=== PATIENT | female | born 1935 | race Caucasian/White ===

== ENCOUNTER 2017-06-03 11:05 | Inpatient (IN) | payer OTHER ==
--- NOTE | 2017-06-03 11:16 | PDOC ---
History of Present Illness <Fer Barber - Last Filed: 06/03/17 16:18> - General History Source: Patient, Spouse Exam Limitations: No Limitations - History of Present Illness Initial Comments: 06/03/17 11:42 The patient is an 84 year old female with a significant PMH of diverticulitis, HTN, hyperlipidemia, kidney stones, Celiac Disease, and gout who presents to the emergency department with abdominal pain beginning approximately four days ago. The abdominal pain is localized to the LLQ with no radiation. The patient notes that the pain is similar to an episode of kidney stones that she had previously. The patient denies chest pain, shortness of breath, headache and dizziness. Denies fever, chills, nausea, vomit, diarrhea and constipation. Denies dysuria, frequency, urgency and hematuria. Allergies: NKDA Past surgical history: Social history: No reported cigarette, alcohol, or drug use. PCP: Dr. Edwards GI: Dr. Bell <David Vieira - Last Filed: 06/03/17 18:06> - General Chief Complaint: Pain Stated Complaint: ABD PAIN/DIBERTICULITIS Time Seen by Provider: 06/03/17 11:15 Past History - Past Medical History Anemia: No Asthma: No Cancer: No Cardiac Disorders: No CVA: No COPD: No CHF: No Dementia: No Diabetes: No GI Disorders: Yes (CELIAC, DIVERTICULITIS) Disorders: No HTN: Yes Hypercholesterolemia: Yes Kidney Stones: Yes Liver Disease: No Seizures: No Thyroid Disease: No - Surgical History Abdominal Surgery: No Appendectomy: No Cardiac Surgery: No Cholecystectomy: No Lung Surgery: No Neurologic Surgery: No Orthopedic Surgery: No - Psycho/Social/Smoking Cessation Hx Suicidal Ideation: No Smoking History: Never smoked Information on smoking cessation initiated: No Hx Alcohol Use: No Drug/Substance Use Hx: No Substance Use Type: None Hx Substance Use Treatment: No <Fer Barber - Last Filed: 06/03/17 16:18> <David Vieira - Last Filed: 06/03/17 18:06> - Past Medical History Allergies/Adverse Reactions: Allergies Allergy/AdvReac Type Severity Reaction Status Date / Time gluten Allergy Verified 06/03/17 11:10 No Known Drug Allergies Allergy Verified 06/03/17 11:10 wheat Allergy Verified 06/03/17 11:10 Home Medications: Ambulatory Orders Allopurinol 300 mg PO DAILY 01/25/16 Hydrochlorothiazide [Hctz -] 12.5 mg PO DAILY 01/25/16 Rosuvastatin Calcium [Crestor] 5 mg PO ASDIR 01/25/16 Cholecalciferol (Vitamin D3) [Vitamin D3] 2,000 unit PO DAILY 06/03/17 Metoprolol Succinate [Toprol Xl -] 50 mg PO DAILY 06/03/17 Review of Systems - Review of Systems Comments:: 06/03/17 11:43 GENERAL/CONSTITUTIONAL: No fever or chills. No weakness. HEAD, EYES, EARS, NOSE AND THROAT: No change in vision. No ear pain or discharge. No sore throat. CARDIOVASCULAR: No chest pain or shortness of breath. RESPIRATORY: No cough, wheezing, or hemoptysis. GASTROINTESTINAL: (+) LLQ abdominal pain. No nausea, vomiting, diarrhea or constipation. GENITOURINARY: No dysuria, frequency, or change in urination. MUSCULOSKELETAL: No joint or muscle swelling or pain. No neck or back pain. SKIN: No rash NEUROLOGIC: No headache, vertigo, loss of consciousness, or change in strength/ sensation. ENDOCRINE: No increased thirst. No abnormal weight change. HEMATOLOGIC/LYMPHATIC: No anemia, easy bleeding, or history of blood clots. ALLERGIC/IMMUNOLOGIC: No hives or skin allergy. <David Vieira - Last Filed: 06/03/17 18:06> *Physical Exam - Vital Signs Last Vital Signs Temp Pulse Resp BP Pulse Ox 97.7 F 81 17 145/77 97 06/03/17 11:08 06/03/17 11:08 06/03/17 11:08 06/03/17 11:08 06/03/17 11:08 <Fer Barber - Last Filed: 06/03/17 16:18> - Vital Signs Last Vital Signs Temp Pulse Resp BP Pulse Ox 97.7 F 81 17 145/77 97 06/03/17 11:08 06/03/17 11:08 06/03/17 11:08 06/03/17 11:08 06/03/17 11:08 - Physical Exam Comments: 06/03/17 11:43 GENERAL: Awake, alert, and fully oriented, in no acute distress HEAD: No signs of trauma EYES: PERRLA, EOMI, sclera anicteric, conjunctiva clear ENT: Auricles normal inspection, hearing grossly normal, nares patent, oropharynx clear without exudates. Moist mucosa NECK: Normal ROM, supple, no lymphadenopathy, JVD, or masses LUNGS: Breath sounds equal, clear to auscultation bilaterally. No wheezes, and no crackles HEART: Regular rate and rhythm, normal S1 and S2, no murmurs, rubs or gallops ABDOMEN: (+) LLQ tender to palpation. Soft, normoactive bowel sounds. No guarding, no rebound. No masses EXTREMITIES: Normal range of motion, no edema. No clubbing or cyanosis. No cords, erythema, or tenderness NEUROLOGICAL: Cranial nerves II through XII grossly intact. Normal speech. SKIN: Warm, Dry, normal turgor, no rashes or lesions noted. <David Vieira - Last Filed: 06/03/17 18:06> ED Treatment Course - LABORATORY CBC & Chemistry Diagram: 06/03/17 12:00 06/03/17 11:54 <Fer Barber - Last Filed: 06/03/17 16:18> - LABORATORY CBC & Chemistry Diagram: 06/03/17 12:00 06/03/17 11:54 <David Vieira - Last Filed: 06/03/17 18:06> *DC/Admit/Observation/Transfer - Discharge Dispostion Admit: Yes - Attestations Physician Attestion: 06/03/17 11:16 I, Dr. Fer Barber, attest that this document has been prepared under my direction and personally reviewed by me in its entirety. I further attest, that it accurately reflects all work, treatment, procedures and medical decision -making performed by me. <Fer Barber - Last Filed: 06/03/17 16:18> - Attestations Scribe Attestion: 06/03/17 11:43 Documentation prepared by David Vieira, acting as chief medical director for Fer Barber DO. <David Vieira - Last Filed: 06/03/17 18:06> Diagnosis at time of Disposition: Acute diverticulitis, Failure of outpatient treatment - Discharge Dispostion Condition at time of disposition: Improved - Referrals
[2017-06-03] MEDS ORDERED: ONDANSETRON 4 MG/2 ML VIAL IVPUSH ONE (11:37)
[2017-06-03] MEDS ORDERED: morphine CARPU-JECT 2 MG/1 ML DISP.SYRIN IVPUSH ONE ×2 (11:37→11:38)
[2017-06-03] MEDS ORDERED: morphine CARPU-JECT 2 MG/1 ML DISP.SYRIN ONE (11:58)
[2017-06-03] MEDS ORDERED: ONDANSETRON 4 MG/2 ML VIAL ONE (11:59)
[2017-06-03 12:06] LABS: BASOPHIL 0.2 % (0-2.0); EOSINOPHIL 0.4 % (0-4.5); MCH 30.2 pg (25.7-33.7); MCHC 33.9 g/dl (32.0-36.0); MEAN CELL VOLUME 89.1 fl (80-96); MEAN PLT VOLUME 9.1 fl (7.5-11.1); NEUTROPHILS 68.3 % (42.8-82.8); PLATELET COUNT 191 K/MM3 (134-434); RDW 13.2 % (11.6-15.6); WHITE BLOOD COUNT 7.9 K/mm3 (4.0-10.0)
[2017-06-03 12:10] LABS: URINE APPEARANCE CLEAR; URINE BILIRUBIN 1+ (NEGATIVE); URINE BLOOD TRACE-LYSE (NEGATIVE); URINE COLOR YELLOW; URINE GLUCOSE (UA) NEGATIVE (NEGATIVE); URINE KETONE NEGATIVE (NEGATIVE); URINE LEUK ESTERASE NEGATIVE (NEGATIVE); URINE NITRITE NEGATIVE (NEGATIVE); URINE UROBILINOGEN 0.2 mg/dL (0.2-1.0)
[2017-06-03 12:22] LABS: URINE PROTEIN TRACE (NEGATIVE)
[2017-06-03 12:28] LABS: INR 1.32 (0.82-1.09); PROTHROMBIN TIME (PATIENT) 14.6 SEC (9.98-11.88)
[2017-06-03 12:40] LABS: ALBUMIN 3.6 g/dl (3.4-5.0); ANION GAP 11 (8-16); BILIRUBIN,TOTAL 1.2 mg/dL (0.2-1.0); CO2 29 mmol/L (21-32); CREATININE 1.6 mg/dL (0.55-1.02); GLUCOSE,RANDOM 210 mg/dL (74-106); SGOT/AST 18 U/L (15-37); SGPT/ALT 23 U/L (12-78); TOT PROT 6.4 g/dl (6.4-8.2)
[2017-06-03 12:41] LABS: ALK PHOS 88 U/L (45-117)
[2017-06-03] MEDS ORDERED: POTASSIUM CHLORIDE TABS 20 MEQ TABLET.ER (FP) PO ONE (13:29)
[2017-06-03] MEDS ORDERED: POTASSIUM CHLORIDE TABS 10 MEQ TABLET.ER (FP) ONE (13:42)
[2017-06-03] MEDS ORDERED: SODIUM CHLORIDE 1,000 ML IV STA (14:30)
[2017-06-03] MEDS ORDERED: PIPERACILLIN/TAZOB 3.375 GM/50 ML PRE-DOCKED IV ONE (15:16)
[2017-06-03] MEDS ORDERED: METRONIDAZOLE 500 MG PREMIXED 100 ML IVPB ONE ×2 (15:16→15:31)
[2017-06-03] MEDS ORDERED: PIPERACILLIN/TAZOB 3.375 GM 50 ML IVPB ONE (15:31)
[2017-06-03] MEDS ORDERED: ONDANSETRON 4 MG/2 ML VIAL IVPB PRN (17:02)
--- NOTE | 2017-06-03 18:17 | HP ---
CHIEF COMPLAINT: abdominal pain PCP:Dr. Edwards HISTORY OF PRESENT ILLNESS: 81 yo F with significant PMHx of Diverticulitis, HTN, HLD, kidney stones, Celiac Disease and Gout presents with one week history of abdominal. She describes intermittent 6/10 LLQ sharp pain. No alleviating or aggravating factors. She initially went to urgent care last week and had CT of abdomen that showed diverticulitis and was given PO Cipro/Flagyl. She did not tolerate flagyl secondary to GI upset. She presents to ER today because of unresolved symptoms. Denies CP, SHEARER, SOB, palpitation, N/V. Denies Fever or chills. ER course was notable for: (1)CT abdomen: There is acute sigmoid diverticulitis with annular wall thickening, pericolonic fat stranding and thickening of the mesocolon. (2)Given Zosyn and Flagyl x1 (3)CXR showed no acute pathology Recent Travel: denies PAST MEDICAL HISTORY: Diverticulitis, HTN, HLD, kidney stones, Celiac Disease and Gout PAST SURGICAL HISTORY: partial hysterctomy. Social History: Smoking:denies Alcohol:denies Drugs: denies Family History: Mother (breast cancer) Father ( in 80's of old age.) Allergies gluten Allergy (Verified 06/03/17 11:10) No Known Drug Allergies Allergy (Verified 06/03/17 11:10) wheat Allergy (Verified 06/03/17 11:10) HOME MEDICATIONS: Home Medications Medication Instructions Recorded Allopurinol 300 mg PO DAILY 01/25/16 Hydrochlorothiazide [Hctz -] 12.5 mg PO DAILY 01/25/16 Rosuvastatin Calcium [Crestor] 5 mg PO ASDIR 01/25/16 Cholecalciferol (Vitamin D3) 2,000 unit PO DAILY 06/03/17 [Vitamin D3] Metoprolol Succinate [Toprol Xl -] 50 mg PO DAILY 06/03/17 REVIEW OF SYSTEMS CONSTITUTIONAL: Absent: fever, chills, diaphoresis, generalized weakness, malaise, loss of appetite, weight change HEENT: Absent: rhinorrhea, nasal congestion, throat pain, throat swelling, difficulty swallowing, mouth swelling, ear pain, eye pain, visual changes CARDIOVASCULAR: Absent: chest pain, syncope, palpitations, irregular heart rate, lightheadedness , peripheral edema RESPIRATORY: Absent: cough, shortness of breath, dyspnea with exertion, orthopnea, wheezing, stridor, hemoptysis GASTROINTESTINAL:abdominal pain Absent: , abdominal distension, nausea, vomiting, diarrhea, constipation, melena , hematochezia GENITOURINARY: Absent: dysuria, frequency, urgency, hesitancy, hematuria, flank pain, genital pain MUSCULOSKELETAL: Absent: myalgia, arthralgia, joint swelling, back pain, neck pain SKIN: Absent: rash, itching, pallor HEMATOLOGIC/IMMUNOLOGIC: Absent: easy bleeding, easy bruising, lymphadenopathy, frequent infections ENDOCRINE: Absent: unexplained weight gain, unexplained weight loss, heat intolerance, cold intolerance NEUROLOGIC: Absent: headache, focal weakness or paresthesias, dizziness, unsteady gait, seizure, mental status changes, bladder or bowel incontinence PSYCHIATRIC: Absent: anxiety, depression, suicidal or homicidal ideation, hallucinations. PHYSICAL EXAMINATION Vital Signs - 24 hr 06/03/17 17:19 Temperature 98.2 F Pulse Rate [ 74 Left Radial] Respiratory 17 Rate Blood Pressure 111/62 [Right Arm] O2 Sat by Pulse 96 Oximetry (%) GENERAL: Awake, alert, and fully oriented, in no acute distress. HEAD: Normal with no signs of trauma. EYES: PERRLA,EOMI, sclera anicteric, conjunctiva clear. No lid lag. EARS, NOSE, THROAT: DRY mucous membranes. NECK: supple without JVD LUNGS: CTAB. No wheezes, and no crackles. No accessory muscle use. HEART: Regular rate and rhythm, normal S1 and S2 without murmur, rub or gallop. ABDOMEN: Soft, LLQ tenderness, not distended, normoactive bowel sounds,(+) voluntary guarding, no rebound, no masses. No hepatomegaly or splenomegaly. MUSCULOSKELETAL: Normal range of motion at all joints. No bony deformities or tenderness. No CVA tenderness. UPPER EXTREMITIES: 2+ pulses, warm, well-perfused. No cyanosis. No clubbing. No peripheral edema. LOWER EXTREMITIES: 2+ pulses, warm, well-perfused. No calf tenderness. trace bilateral LE edema. NEUROLOGICAL: Cranial nerves II-XII intact. Normal speech. gait not observed. PSYCHIATRIC: Cooperative. Good eye contact. Appropriate mood and affect. SKIN: Warm, dry, normal turgor, no rashes or lesions noted, normal capillary refill. Laboratory Tests 06/03/17 06/03/1706/03/17 11:54 12:00 12:00 WBC 7.9 D RBC 5.28 H Hgb 15.9 H Hct 47.1 H MCV 89.1 MCH 30.2 MCHC 33.9 RDW 13.2 Plt Count 191 D MPV 9.1 Neutrophils % 68.3 D Lymphocytes % 15.5 Monocytes % 15.6 H Eosinophils % 0.4 Basophils % 0.2 INR 1.32 H D Sodium 136 Potassium 3.1 L Chloride 96 L Carbon Dioxide 29 Anion Gap 11 BUN 30 H D Creatinine 1.6 H Creat Clearance w eGFR 30.86 Random Glucose 210 H Calcium 9.0 Total Bilirubin 1.2 H D AST 18 D ALT 23 D Alkaline Phosphatase 88 D Total Protein 6.4 Albumin 3.6 Urine Color Urine Appearance Urine pH Ur Specific [place] Urine Protein Urine Glucose (UA) Urine Ketones Urine Blood Urine Nitrite Urine Bilirubin Urine Urobilinogen Ur Leukocyte Esterase 06/03/17 12:00 WBC RBC Hgb Hct MCV MCH MCHC RDW Plt Count MPV Neutrophils % Lymphocytes % Monocytes % Eosinophils % Basophils % INR Sodium Potassium Chloride Carbon Dioxide Anion Gap BUN Creatinine Creat Clearance w eGFR Random Glucose Calcium Total Bilirubin AST ALT Alkaline Phosphatase Total Protein Albumin Urine Color Yellow Urine Appearance Clear Urine pH 6.0 Ur Specific [place] 1.020 Urine Protein Trace H Urine Glucose (UA) Negative Urine Ketones Negative Urine Blood Trace-lyse Urine Nitrite Negative Urine Bilirubin 1+ H Urine Urobilinogen 0.2 Ur Leukocyte Esterase Negative IMAGING: * [id number] CT/ABDOMEN PELVIS CT W/O CONTR EXAM: CT ABDOMEN AND PELVIS WITHOUT IV CONTRAST. INDICATION: Abdominal pain. Acute diverticulitis. TECHNIQUE: Contiguous axial CT images of the abdomen and pelvis were obtained with oral contrast. No intravenous contrast administered. Coronal and sagittal reconstructions obtained COMPARISON: 01/25/2016 CT abdomen/pelvis. FINDINGS: Evaluation of the solid viscera and vessels is limited without IV contrast. There is subsegmental dependent atelectasis inferior lingula and bilateral lower lobes. There is mild multichamber cardiomegaly. There is calcific atherosclerosis along the left main coronary artery. There is acute sigmoid diverticulitis with annular wall thickening, pericolonic fat stranding and thickening of the mesocolon. There is no gross free intraperitoneal air. There is no gross drainable fluid collection at this time. There is no evidence of bowel obstruction. There is a small hiatal hernia. The liver and spleen are normal in size. The gallbladder is not pathologically distended. The common bile duct is not dilated. The unopacified pancreas is unremarkable. There is no mass in the adrenal glands. There is no hydronephrosis. There are calculi in the upper pole calyces of the left kidney with staghorn configuration, measuring up to 1.2 cm in length and 0.6 cm in thickness, associated with caliectasis. Additional punctate nonobstructing calculi in lower pole calyces of left kidney measuring approximately 2 mm are noted. There is a large left renal sinus cyst, unchanged. There are exophytic hypodense lesions in both kidneys, too small to characterize, but unchanged in size and most likely represent cysts. There is also an exophytic hyperdense lesion in the lower pole left kidney which is unchanged in size, probably a cyst with proteinaceous contents. The abdominal aorta is of normal caliber. There is moderate calcific atherosclerosis, predominantly along the infrarenal abdominal aorta. There is also extensive calcific atherosclerosis along the right internal iliac artery. There is a prominent, rounded lymph node adjacent to the proximal left common iliac artery, unchanged in size. Additional nonspecific subcentimeter retroperitoneal lymph nodes are unchanged in size. Urinary bladder is unremarkable. Subcentimeter nodular calcification in the right uterine fundus is unchanged, most compatible with a degenerated fibroid. There are no pathologically enlarged pelvic sidewall lymph nodes by size criteria. There is a small fat-containing left inguinal hernia. No acute fracture in the visualized osseous structures. There are degenerative changes in the spine , sacroiliac joints and hips. IMPRESSION: 1. Acute sigmoid diverticulitis as described above. No gross free intraperitoneal air or drainable fluid collection at this time. Consider sigmoidoscopy after completion of therapy to exclude underlying mass lesion. 2. Left nephrolithiasis as described above with unchanged focal caliectasis in the upper pole. 3. Exophytic hyperdense lesion in the lower pole of left kidney is unchanged in size, most likely a cyst with proteinaceous contents. This can be confirmed with nonemergent, outpatient renal sonogram. Reported By: Wong Gustafson MD 06/03/17 [id number] ASSESSMENT/PLAN: 81 yo F with significant PMHx of Diverticulitis, HTN, HLD, kidney stones, Celiac Disease and Gout admitted for failed outpatient treatment of acute diverticulitis. Problem List - Problem (1) Failure of outpatient treatment (2) Diverticulitis Assessment/Plan: * CT abdomen show acute diverticulitis * Will give Ceftriaxone 2gm IV daily and Metronidazole 500mg IV Q8H * Full liquid diet - gluten free\ * Consulted Dr. Bell her GI * Last Colonoscopy December of 2016 showed 2 polyps and diverticulosis * Repeat CMP in AM (3) HTN (hypertension) Assessment/Plan: * Will continue home meds. * HCTZ and Metoprolol (4) HLD (hyperlipidemia) Assessment/Plan: * Continue Crestor MWF [facility] (5) Gout Assessment/Plan: * Continue Allopurinol (6) Celiac disease Assessment/Plan: * Gluten free diet. (7) DVT prophylaxis Assessment/Plan: * SCD's bilat * Heparin SubQ 5000Units BID. Visit type - Emergency Visit Emergency Visit: Yes ED Registration Date: 06/03/17 Care time: The patient presented to the Emergency Department on the above date and was hospitalized for further evaluation of their emergent condition. - New Patient This patient is new to me today: Yes Date on this admission: 06/03/17 - Critical Care Critical Care patient: No
[2017-06-03 18:40] VITALS: BMI 29.2
[2017-06-03] MEDS: SODIUM CHLORIDE 1,000 ML IV SCH (18:54)
--- NOTE | 2017-06-03 19:34 | PN ---
Teaching Attending Note Name of Resident: Vasquez Naqvi ATTENDING PHYSICIAN STATEMENT I saw and evaluated the patient. I reviewed the resident's note and discussed the case with the resident. I agree with the resident's findings and plan as documented. SUBJECTIVE: Patient is c/o having abdominal pain was diagnosed recently with diverticulitis and was given oral Antibiotic without any improvement since was not able to swallow the meds. due to feeling nauseas and was throwing up. OBJECTIVE: Vital Signs Temperature 97.8 F 06/03/17 18:34 Pulse Rate 76 06/03/17 18:34 Respiratory Rate 20 06/03/17 18:34 Blood Pressure 111/65 06/03/17 18:34 O2 Sat by Pulse Oximetry (%) 94 L 06/03/17 18:43 CBCD WBC 7.9 K/mm3 (4.0-10.0) D 06/03/17 12:00 RBC 5.28 M/mm3 (3.60-5.2) H 06/03/17 12:00 Hgb 15.9 GM/dL (10.7-15.3) H 06/03/17 12:00 Hct 47.1 % (32.4-45.2) H 06/03/17 12:00 MCV 89.1 fl (80-96) 06/03/17 12:00 MCHC 33.9 g/dl (32.0-36.0) 06/03/17 12:00 RDW 13.2 % (11.6-15.6) 06/03/17 12:00 Plt Count 191 K/MM3 (134-434) D 06/03/17 12:00 MPV 9.1 fl (7.5-11.1) 06/03/17 12:00 CMP Sodium 136 mmol/L (136-145) 06/03/17 11:54 Potassium 3.1 mmol/L (3.5-5.1) L 06/03/17 11:54 Chloride 96 mmol/L (98-107) L 06/03/17 11:54 Carbon Dioxide 29 mmol/L (21-32) 06/03/17 11:54 Anion Gap 11 (8-16) 06/03/17 11:54 BUN 30 mg/dL (7-18) H D 06/03/17 11:54 Creatinine 1.6 mg/dL (0.55-1.02) H 06/03/17 11:54 Creat Clearance w eGFR 30.86 (>60) 06/03/17 11:54 Random Glucose 210 mg/dL (74-106) H 06/03/17 11:54 Calcium 9.0 mg/dL (8.5-10.1) 06/03/17 11:54 Total Bilirubin 1.2 mg/dL (0.2-1.0) H D 06/03/17 11:54 AST 18 U/L (15-37) D 06/03/17 11:54 ALT 23 U/L (12-78) D 06/03/17 11:54 Alkaline Phosphatase 88 U/L (45-117) D 06/03/17 11:54 Total Protein 6.4 g/dl (6.4-8.2) 06/03/17 11:54 Albumin 3.6 g/dl (3.4-5.0) 06/03/17 11:54 Current Medications Generic Name Dose Route Start Last Admin Trade Name Freq PRN Reason Stop Dose Admin Allopurinol 300 mg 06/04/17 10:00 Zyloprim - PO DAILY [facility] Cholecalciferol 2,000 unit 06/04/17 10:00 Vitamin D3 - PO DAILY [facility] Heparin Sodium (Porcine) 5,000 unit 06/03/17 22:00 Heparin - SQ BID [facility] Hydrochlorothiazide 12.5 mg 06/04/17 10:00 Hctz - PO DAILY [facility] Sodium Chloride 1,000 mls @ 100 mls/hr 06/03/17 17:15 06/03/17 18:54 Normal Saline - IV 100 mls/hr ASDIR [facility] Administration Metronidazole 100 mls @ 100 mls/hr 06/04/17 02:00 Flagyl 500mg Premixed Ivpb - IVPB Q8H-IV [facility] Ceftriaxone Sodium 2 gm/ 100 mls @ 200 mls/hr 06/04/17 10:00 Dextrose IVPB DAILY [facility] Metoprolol Succinate 50 mg 06/04/17 10:00 Toprol Xl - PO DAILY [facility] Morphine Sulfate 2 mg 06/03/17 17:02 Morphine Injection - IVPUSH Q4H PRN PAIN Ondansetron HCl 4 mg 06/03/17 17:02 Zofran Injection IVPB Q6H PRN NAUSE[facility] Rosuvastatin Calcium 5 mg 06/03/17 19:15 Crestor - PO [facility] Home Medications Medication Instructions Recorded Allopurinol 300 mg PO DAILY 01/25/16 Hydrochlorothiazide [Hctz -] 12.5 mg PO DAILY 01/25/16 Rosuvastatin Calcium [Crestor] 5 mg PO MOWEFR 01/25/16 Cholecalciferol (Vitamin D3) 2,000 unit PO DAILY 06/03/17 [Vitamin D3] Metoprolol Succinate [Toprol Xl -] 50 mg PO DAILY 06/03/17 ASSESSMENT AND PLAN: CT/ABDOMEN PELVIS CT W/O CONTR EXAM: CT ABDOMEN AND PELVIS WITHOUT IV CONTRAST. INDICATION: Abdominal pain. Acute diverticulitis. TECHNIQUE: Contiguous axial CT images of the abdomen and pelvis were obtained with oral contrast. No intravenous contrast administered. Coronal and sagittal reconstructions obtained COMPARISON: 01/25/2016 CT abdomen/pelvis. FINDINGS: Evaluation of the solid viscera and vessels is limited without IV contrast. There is subsegmental dependent atelectasis inferior lingula and bilateral lower lobes. There is mild multichamber cardiomegaly. There is calcific atherosclerosis along the left main coronary artery. There is acute sigmoid diverticulitis with annular wall thickening, pericolonic fat stranding and thickening of the mesocolon. There is no gross free intraperitoneal air. There is no gross drainable fluid collection at this time. There is no evidence of bowel obstruction. There is a small hiatal hernia. The liver and spleen are normal in size. The gallbladder is not pathologically distended. The common bile duct is not dilated. The unopacified pancreas is unremarkable. There is no mass in the adrenal glands. There is no hydronephrosis. There are calculi in the upper pole calyces of the left kidney with staghorn configuration, measuring up to 1.2 cm in length and 0.6 cm in thickness, associated with caliectasis. Additional punctate nonobstructing calculi in lower pole calyces of left kidney measuring approximately 2 mm are noted. There is a large left renal sinus cyst, unchanged. There are exophytic hypodense lesions in both kidneys, too small to characterize, but unchanged in size and most likely represent cysts. There is also an exophytic hyperdense lesion in the lower pole left kidney which is unchanged in size, probably a cyst with proteinaceous contents. The abdominal aorta is of normal caliber. There is moderate calcific atherosclerosis, predominantly along the infrarenal abdominal aorta. There is also extensive calcific atherosclerosis along the right internal iliac artery. There is a prominent, rounded lymph node adjacent to the proximal left common iliac artery, unchanged in size. Additional nonspecific subcentimeter retroperitoneal lymph nodes are unchanged in size. Urinary bladder is unremarkable. Subcentimeter nodular calcification in the right uterine fundus is unchanged, most compatible with a degenerated fibroid. There are no pathologically enlarged pelvic sidewall lymph nodes by size criteria. There is a small fat-containing left inguinal hernia. No acute fracture in the visualized osseous structures. There are degenerative changes in the spine , sacroiliac joints and hips. IMPRESSION: 1. Acute sigmoid diverticulitis as described above. No gross free intraperitoneal air or drainable fluid collection at this time. Consider sigmoidoscopy after completion of therapy to exclude underlying mass lesion. 2. Left nephrolithiasis as described above with unchanged focal caliectasis in the upper pole. 3. Exophytic hyperdense lesion in the lower pole of left kidney is unchanged in size, most likely a cyst with proteinaceous contents. This can be confirmed with nonemergent, outpatient renal sonogram. Reported By: Wong Gustafson MD 06/03/17 [id number] PE: per resident's note Abdomen:Soft, positive for LLQ tenderness. ASSESSMENT/PLAN: 81 yo F with significant PMHx of Diverticulitis, HTN, HLD, kidney stones, Celiac Disease and Gout admitted for failed outpatient treatment of acute diverticulitis. # Acute Diverticulitis failed outpatient treatment on IV antibiotic Flagyl/ Rocephin; GI consult Dr. Bell , iV morphine prn. NPO for now. # HTN (hypertension) continue home meds # HLD (hyperlipidemia) continue home meds # Gout continue Allopurinol # Celiac disease; gluten free, wheat free diet DVT prophylaxis: Heparin, SCDs
[2017-06-03] MEDS: HEPARIN NA (PORCINE) 5,000 UNITS/ML 1ML VIAL SQ SCH (21:05)
[2017-06-03] MEDS: morphine CARPU-JECT 2 MG/1 ML DISP.SYRIN IVPUSH PRN (21:06)
[2017-06-03] MEDS ORDERED: ROSUVASTATIN CA 5 MG TABLET (FP) PO SCH (22:00)
[2017-06-04] MEDS: METRONIDAZOLE 500 MG PREMIXED 100 ML IVPB SCH ×3 (01:02→18:04)
[2017-06-04] MEDS: SODIUM CHLORIDE 1,000 ML IV SCH ×2 (05:44→18:04)
[2017-06-04] MEDS: morphine CARPU-JECT 2 MG/1 ML DISP.SYRIN IVPUSH PRN ×3 (05:45→21:54)
[2017-06-04 08:51] LABS: MCH 30.4 pg (25.7-33.7); MCHC 33.9 g/dl (32.0-36.0); MEAN CELL VOLUME 89.9 fl (80-96); MEAN PLT VOLUME 9.1 fl (7.5-11.1); PLATELET COUNT 137 K/MM3 (134-434); RDW 13.6 % (11.6-15.6)
[2017-06-04 09:16] LABS: ALBUMIN 2.6 g/dl (3.4-5.0); ANION GAP 10 (8-16); BILIRUBIN,TOTAL 0.6 mg/dL (0.2-1.0); CALCIUM 7.5 mg/dL (8.5-10.1); CO2 26 mmol/L (21-32); CREATININE 1.3 mg/dL (0.55-1.02); GLUCOSE,RANDOM 113 mg/dL (74-106); MAGNESIUM 1.8 mg/dL (1.8-2.4); PHOSPHOROUS 2.5 mg/dL (2.5-4.9); SGOT/AST 12 U/L (15-37); SGPT/ALT 16 U/L (12-78); TOT PROT 4.6 g/dl (6.4-8.2)
[2017-06-04 09:17] LABS: ALK PHOS 63 U/L (45-117)
[2017-06-04] MEDS ORDERED: DEXTROSE 5%-WATER 100 ML IVPB ONE (09:55)
[2017-06-04] MEDS ORDERED: cefTRIAXone 2 GM/100 ML BAG (PRE-DOCKED) IVPB SCH (10:00)
[2017-06-04] MEDS ORDERED: CEFTRIAXONE 1 GM in DEXTROSE 5%-WATER - 50 ML IVPB SCH (10:00)
[2017-06-04] MEDS ORDERED: LEVOFLOXACIN 500 MG IVPB 100 ML IVPB SCH (10:00)
[2017-06-04] MEDS: CEFTRIAXONE 2 GM in DEXTROSE 5%-WATER 100 ML IVPB SCH (10:00)
[2017-06-04] MEDS: HYDROCHLOROTHIAZIDE 12.5 MG CAPSULE (FP) PO SCH (10:00)
[2017-06-04] MEDS: CHOLECALCIFEROL (VITAMIN D3) 1,000 UNIT TABLET (FP) PO SCH (10:00)
[2017-06-04] MEDS: HEPARIN NA (PORCINE) 5,000 UNITS/ML 1ML VIAL SQ SCH ×2 (10:01→21:54)
[2017-06-04] MEDS: METOPROLOL SUCCINATE 50 MG TAB.SR.24H (FP) PO SCH (10:01)
[2017-06-04] MEDS: ALLOPURINOL 300 MG TABLET (FP) PO SCH (10:02)
[2017-06-04] MEDS ORDERED: PT OWN MED DRAWER 7, Y5N ONE (10:02)
[2017-06-04 11:21] LABS: BASOPHIL (MANUAL) 1 % (0-2.0); PLATELET ESTIMATE ADEQUATE (NORMAL); TOTAL CELLS COUNTED 100
--- NOTE | 2017-06-04 13:30 | EKG ---
Test Reason : Blood Pressure : / mmHG Vent. Rate : 083 BPM Atrial Rate : 083 BPM P-R Int : 158 ms QRS Dur : 080 ms QT Int : 400 ms P-R-T Axes : 074 011 010 degrees QTc Int : 470 ms NORMAL SINUS RHYTHM NONSPECIFIC ST AND T WAVE ABNORMALITY WHEN COMPARED WITH ECG OF NONSPECIFIC ST AND T WAVE ABNORMALITY REPEAT EKG IF CLINICALLY INDICATED Confirmed by SELVIN CANTU MD ([id number] on 06/04/2017 1:30:16 PM Referred By: Confirmed By:SELVIN CANTU MD
--- NOTE | 2017-06-04 16:17 | CON.GI ---
Consult Consult Specialty:: Gastroenterology Referred by:: Dr. Vasquez Naqvi Reason for Consultation:: Diverticulitis - History of Present Illness Chief Complaint: LLQ pain that has not improved after a week of oral antibiotics History of Present Illness: 81F was seen at an [facility] on 05/26 for LLQ pain. She underwent a CT scan that revealed diverticulitis and was discharged in [facility]. Despite this course her LLQ pain persists. She denies fever or chills. She has been having well formed bowel movements. Her current CT reveals sigmoid diverticuliltis without an abscess but raises the possibility of an underlying mass. She had a colonoscopy with my associate Dr. Yasmany Bell on 02/24/17 which revealed moderate sigmoid diverticulosis and which led to the removal of right polyp and cecal polyp. She had a similar bout with diverticulitis one year ago. She has celiac disease and follows a gluten free diet. - History Source History Provided By: Patient Limitations to Obtaining History: No Limitations - Past Medical History Gastrointestinal: Yes: Diverticulitis, Other (colon polyps removed 02/16, celiac disease) Hepatobiliary: Yes: Other (fatty liver) Renal/: Yes: Renal Calculi (required cystoscopic "laser" intervention), Other (hyperactive bladder ) Reproductive: Yes: Other (bilateral laparoscopic oophorectomies for cysts, then a laparoscopic RENÉ) ...: No Rheumatology: Yes: Gout - Past Surgical History Past Surgical History: Yes: Breast Biopsy, Cataract Removal, Colonoscopy, Hysterectomy (RENÉ), Oopherectomy (bilateral and laparocopic separately) Additional Surgical History: bilateral laparoscopic oophorectomies for cysts. laparoscopic RENÉ. pilonidal cystectomy. lipoma excisions - Alcohol/Substance Use Hx Alcohol Use: Yes (occasional wine) - Smoking History Smoking history: Never smoked Have you smoked in the past 12 months: No - Social History Usual Living Arrangement: With Spouse ADL: Independent Occupation: former [employer] Place of : [facility] History of Recent Travel: No Home Medications - Allergies Allergies/Adverse Reactions: Allergies Allergy/AdvReac Type Severity Reaction Status Date / Time gluten Allergy Verified 06/03/17 11:10 No Known Drug Allergies Allergy Verified 06/03/17 11:10 wheat Allergy Verified 06/03/17 11:10 - Home Medications Home Medications: Ambulatory Orders Allopurinol 300 mg PO DAILY 01/25/16 Hydrochlorothiazide [Hctz -] 12.5 mg PO DAILY 01/25/16 Rosuvastatin Calcium [Crestor] 5 mg PO MOWEFR 01/25/16 Cholecalciferol (Vitamin D3) [Vitamin D3] 2,000 unit PO DAILY 06/03/17 Metoprolol Succinate [Toprol Xl -] 50 mg PO DAILY 06/03/17 Family Disease History - Family Disease History Family Disease History: CA: Mother ( 93 breast cancer), Other: Father ( 88 post hip surgery complications) Review of Systems - Review of Systems Constitutional: reports: No Symptoms Eyes: reports: No Symptoms HENT: reports: No Symptoms Neck: reports: No Symptoms Respiratory: reports: No Symptoms Gastrointestinal: reports: Abdominal Pain Musculoskeletal: reports: No Symptoms Neurological: reports: No Symptoms Psychiatric: reports: No Symptoms Physical Exam-GI Vital Signs: Vital Signs Temperature 99.1 F 06/04/17 15:04 Pulse Rate 18 L 06/04/17 15:04 Respiratory Rate 20 06/04/17 15:04 Blood Pressure 130/60 06/04/17 11:00 O2 Sat by Pulse Oximetry (%) 98 06/04/17 09:00 CBC,CMP WBC 4.0 K/mm3 (4.0-10.0) D 06/04/17 07:00 RBC 4.26 M/mm3 (3.60-5.2) 06/04/17 07:00 Hgb 13.0 GM/dL (10.7-15.3) D 06/04/17 07:00 Hct 38.3 % (32.4-45.2) D 06/04/17 07:00 MCV 89.9 fl (80-96) 06/04/17 07:00 MCH 30.4 pg (25.7-33.7) 06/04/17 07:00 MCHC 33.9 g/dl (32.0-36.0) 06/04/17 07:00 RDW 13.6 % (11.6-15.6) 06/04/17 07:00 Plt Count 137 K/MM3 (134-434) D 06/04/17 07:00 MPV 9.1 fl (7.5-11.1) 06/04/17 07:00 Total Counted 100 06/04/17 07:00 Neutrophils % Y 06/04/17 07:00 Neutrophils % (Manual) 40 % (42.8-82.8) L 06/04/17 07:00 Band Neuts % (Manual) 7 % (0-10) 06/04/17 07:00 Lymphocytes % Y 06/04/17 07:00 Lymphocytes % (Manual) 26 % (8-40) 06/04/17 07:00 Monocytes % 15.6 % (3.8-10.2) H 06/03/17 12:00 Monocytes % (Manual) 23 % (3.8-10.2) H* 06/04/17 07:00 Eosinophils % 0.4 % (0-4.5) 06/03/17 12:00 Eosinophils % (Manual) 3 % (0-4.5) 06/04/17 07:00 Basophils % 0.2 % (0-2.0) 06/03/17 12:00 Basophils % (Manual) 1 % (0-2.0) 06/04/17 07:00 Platelet Estimate Adequate (NORMAL) 06/04/17 07:00 Platelet Comment No clumping noted 06/04/17 07:00 Sodium 140 mmol/L (136-145) 06/04/17 07:00 Potassium 3.7 mmol/L (3.5-5.1) 06/04/17 07:00 Chloride 104 mmol/L (98-107) 06/04/17 07:00 Carbon Dioxide 26 mmol/L (21-32) 06/04/17 07:00 Anion Gap 10 (8-16) 06/04/17 07:00 BUN 26 mg/dL (7-18) H 06/04/17 07:00 Creatinine 1.3 mg/dL (0.55-1.02) H 06/04/17 07:00 Creat Clearance w eGFR 39.21 (>60) 06/04/17 07:00 Random Glucose 113 mg/dL (74-106) H D 06/04/17 07:00 Calcium 7.5 mg/dL (8.5-10.1) L 06/04/17 07:00 Phosphorus 2.5 mg/dL (2.5-4.9) 06/04/17 07:00 Magnesium 1.8 mg/dL (1.8-2.4) 06/04/17 07:00 Total Bilirubin 0.6 mg/dL (0.2-1.0) D 06/04/17 07:00 AST 12 U/L (15-37) L D 06/04/17 07:00 ALT 16 U/L (12-78) D 06/04/17 07:00 Alkaline Phosphatase 63 U/L (45-117) D 06/04/17 07:00 Total Protein 4.6 g/dl (6.4-8.2) L D 06/04/17 07:00 Albumin 2.6 g/dl (3.4-5.0) L D 06/04/17 07:00 Current Medications Generic Name Dose Route Start Last Admin Trade Name Freq PRN Reason Stop Dose Admin Allopurinol 300 mg 06/04/17 10:00 06/04/17 10:02 Zyloprim - PO 300 mg DAILY ASHLEY Administration Cholecalciferol 2,000 unit 06/04/17 10:00 06/04/17 10:00 Vitamin D3 - PO 2,000 unit DAILY ASHLEY Administration Heparin Sodium (Porcine) 5,000 unit 06/03/17 22:00 06/04/17 10:01 Heparin - SQ 5,000 unit BID ASHLEY Administration Hydrochlorothiazide 12.5 mg 06/04/17 10:00 06/04/17 10:00 Hctz - PO 12.5 mg DAILY ASHLEY Administration Sodium Chloride 1,000 mls @ 100 mls/hr 06/03/17 17:15 06/04/17 05:44 Normal Saline - IV 100 mls/hr ASDIR ASHLEY Administration Metronidazole 100 mls @ 100 mls/hr 06/04/17 02:00 06/04/17 10:00 Flagyl 500mg Premixed Ivpb - IVPB 100 mls/hr Q8H-IV ASHLEY Administration Ceftriaxone Sodium 2 gm/ 100 mls @ 200 mls/hr 06/04/17 10:00 06/04/17 10:00 Dextrose IVPB 200 mls/hr DAILY ASHLEY Administration Metoprolol Succinate 50 mg 06/04/17 10:00 06/04/17 10:01 Toprol Xl - PO 50 mg DAILY ASHLEY Administration Morphine Sulfate 2 mg 06/03/17 17:02 06/04/17 15:07 Morphine Injection - IVPUSH 2 mg Q4H PRN Administration PAIN Ondansetron HCl 4 mg 06/03/17 17:02 Zofran Injection IVPB Q6H PRN NAUSEA Rosuvastatin Calcium 5 mg 06/03/17 22:00 06/03/17 21:05 Crestor - PO 5 mg [id number] ASHLEY Administration Constitutional: Yes: No Distress Eyes: Yes: Conjunctiva Clear HENT: Yes: Normocephalic Neck: Yes: Supple Cardiovascular: Yes: Regular Rate and Rhythm Respiratory: Yes: CTA Bilaterally Gastrointestinal Inspection: Yes: Distention, Scars (healed laparoscopic incisions) ...Auscultate: Yes: Normoactive Bowel Sounds ...Palpate: Yes: Soft, Tenderness (mild LLQ tenderness), Other (multiple lipomas ) ...Rectal Exam: Yes: Deferred (given recent colonoscopy) Edema: No Neurological: Yes: Alert, Oriented Labs: CBC, BMP 06/04/17 07:00 06/04/17 07:00 INR, PTT INR 1.32 (0.82-1.09) H D 06/03/17 12:00 Imaging - Results Cat Scan: Report Reviewed (Maria Antonia Hamlin Name: [facility] DEPARTMENT OF RADIOLOGY Phys: Fer Barber MD : 1935 Age: 81 Sex: F [facility] Acct: [id number] Loc: [address] Exam Date: 06/03/17 Status: [facility] [place] [address] Unit Number: [id number] EXAM#: TYPE/EXAM: RESULT: 65 CT/ABDOMEN PELVIS CT W/O CONTR EXAM: CT ABDOMEN AND PELVIS WITHOUT IV CONTRAST. INDICATION: Abdominal pain. Acute diverticulitis. TECHNIQUE : Contiguous axial CT images of the abdomen and pelvis were obtained with oral contrast. No intravenous contrast administered. Coronal and sagittal reconstructions obtained COMPARISON: 01/25/2016 CT abdomen/pelvis. FINDINGS: Evaluation of the solid viscera and vessels is limited without IV contrast. There is subsegmental dependent atelectasis inferior lingula and bilateral lower lobes. There is mild multichamber cardiomegaly. There is calcific atherosclerosis along the left main coronary artery. There is acute sigmoid diverticulitis with annular wall thickening, pericolonic fat stranding and thickening of the mesocolon. There is no gross free intraperitoneal air. There is no gross drainable fluid collection at this time. There is no evidence of bowel obstruction. There is a small hiatal hernia. The liver and spleen are normal in size. The gallbladder is not pathologically distended. The common bile duct is not dilated. The unopacified pancreas is unremarkable. There is no mass in the adrenal glands. There is no hydronephrosis. There are calculi in the upper pole calyces of the left kidney with staghorn configuration, measuring up to 1.2 cm in length and 0.6 cm in thickness, associated with caliectasis. Additional punctate nonobstructing calculi in lower pole calyces of left kidney measuring approximately 2 mm are noted. There is a large left renal sinus cyst, unchanged. There are exophytic hypodense lesions in both kidneys, too small to characterize, but unchanged in size and most likely represent cysts. There is also an exophytic hyperdense lesion in the lower pole left kidney which is unchanged in size, probably a cyst with proteinaceous contents. The abdominal aorta is of normal caliber. There is moderate calcific atherosclerosis , predominantly along the infrarenal abdominal aorta. There is also extensive calcific atherosclerosis along the right internal iliac artery. There is a prominent, rounded lymph node adjacent to the proximal left common iliac artery , unchanged in size. Additional nonspecific subcentimeter retroperitoneal lymph nodes are unchanged in size. Urinary bladder is unremarkable. Subcentimeter nodular calcification in the right uterine fundus is unchanged, most compatible with a degenerated fibroid. There are no pathologically enlarged pelvic sidewall lymph nodes by size criteria. There is a small fat- containing left inguinal hernia. No acute fracture in the visualized osseous structures. There are degenerative changes in the spine , sacroiliac joints and hips. IMPRESSION: 1. Acute sigmoid diverticulitis as described above. No gross free intraperitoneal air or drainable fluid collection at this time. Consider sigmoidoscopy after completion of therapy to exclude underlying mass lesion. 2. Left nephrolithiasis as described above with unchanged focal caliectasis in the upper pole. 3. Exophytic hyperdense lesion in the lower pole of left kidney is unchanged in size, most likely a cyst with proteinaceous contents. This can be confirmed with nonemergent, outpatient renal sonogram. Reported By: Wong Gustafson MD 10/19 1544 Fer Barber Technologist: Erik Villagomez Transcribed Date/Time: 06/03/17 154 Turntable Man: Wong Gustafson MD Printed Date/Time: [ rep prt dt last] [ rep prt tm last] By: [ rep prt user last] Signed by: Wong Gustafson Signed on: 03-Jun-2017 15:44) Problem List - Problems (1) Colon polyp Code(s): K63.5 - POLYP OF COLON (2) Nephrolithiasis, uric acid Code(s): N20.0 - CALCULUS OF KIDNEY Assessment/Plan I agree with the need to try a course of IV antibiotics for this refractory sigmoid diverticulitis. An underlying neoplasm is unlikely given her recent colonoscopy but if symptoms fail to resolve a sigmoidoscopy will be indicated to exclude diverticular colitis or a neoplasm before considering surgery.
--- NOTE | 2017-06-04 20:00 | PN ---
Progress Note (short form) - Note Progress Note: Feeling better but still having LLQ pain requiring IV Morphine, no fever or chills, no shortness.no nausea or vomiting. Temperature 99.1 F 06/04/17 15:04 Pulse Rate 18 L 06/04/17 15:04 Respiratory Rate 20 06/04/17 15:04 Blood Pressure 130/60 06/04/17 11:00 O2 Sat by Pulse Oximetry (%) 98 06/04/17 09:00 GENERAL: Awake, alert, and fully oriented, in no acute distress. HEAD: Normal with no signs of trauma. EYES: PERRLA,EOMI, sclera anicteric, conjunctiva clear. EARS, NOSE, THROAT: DRY mucous membranes. NECK: supple without JVD LUNGS: CTAB. No wheezes, and no crackles. No accessory muscle use. HEART: Regular rate and rhythm, normal S1 and S2 without murmur, rub or gallop. ABDOMEN: Soft, LLQ tenderness, not distended, normoactive bowel sounds,(+) voluntary guarding, no rebound, no masses. MUSCULOSKELETAL: Normal range of motion at all joints. No bony deformities or tenderness. No CVA tenderness. EXTREMITIES: 2+ pulses, warm, well-perfused. No cyanosis. No clubbing. No peripheral edema. NEUROLOGICAL: Cranial nerves II-XII intact. Normal speech. gait not observed. PSYCHIATRIC: Cooperative. Good eye contact. Appropriate mood and affect. SKIN: Warm, dry, normal turgor, no rashes or lesions noted, normal capillary refill. CBCD WBC 4.0 K/mm3 (4.0-10.0) D 06/04/17 07:00 RBC 4.26 M/mm3 (3.60-5.2) 06/04/17 07:00 Hgb 13.0 GM/dL (10.7-15.3) D 06/04/17 07:00 Hct 38.3 % (32.4-45.2) D 06/04/17 07:00 MCV 89.9 fl (80-96) 06/04/17 07:00 MCHC 33.9 g/dl (32.0-36.0) 06/04/17 07:00 RDW 13.6 % (11.6-15.6) 06/04/17 07:00 Plt Count 137 K/MM3 (134-434) D 06/04/17 07:00 MPV 9.1 fl (7.5-11.1) 06/04/17 07:00 CMP Sodium 140 mmol/L (136-145) 06/04/17 07:00 Potassium 3.7 mmol/L (3.5-5.1) 06/04/17 07:00 Chloride 104 mmol/L (98-107) 06/04/17 07:00 Carbon Dioxide 26 mmol/L (21-32) 06/04/17 07:00 Anion Gap 10 (8-16) 06/04/17 07:00 BUN 26 mg/dL (7-18) H 06/04/17 07:00 Creatinine 1.3 mg/dL (0.55-1.02) H 06/04/17 07:00 Creat Clearance w eGFR 39.21 (>60) 06/04/17 07:00 Random Glucose 113 mg/dL (74-106) H D 06/04/17 07:00 Calcium 7.5 mg/dL (8.5-10.1) L 06/04/17 07:00 Total Bilirubin 0.6 mg/dL (0.2-1.0) D 06/04/17 07:00 AST 12 U/L (15-37) L D 06/04/17 07:00 ALT 16 U/L (12-78) D 06/04/17 07:00 Alkaline Phosphatase 63 U/L (45-117) D 06/04/17 07:00 Total Protein 4.6 g/dl (6.4-8.2) L D 06/04/17 07:00 Albumin 2.6 g/dl (3.4-5.0) L D 06/04/17 07:00 Current Medications Generic Name Dose Route Start Last Admin Trade Name Freq PRN Reason Stop Dose Admin Allopurinol 300 mg 06/04/17 10:00 06/04/17 10:02 Zyloprim - PO 300 mg DAILY ASHLEY Administration Cholecalciferol 2,000 unit 06/04/17 10:00 06/04/17 10:00 Vitamin D3 - PO 2,000 unit DAILY ASHLEY Administration Heparin Sodium (Porcine) 5,000 unit 06/03/17 22:00 06/04/17 10:01 Heparin - SQ 5,000 unit BID ASHLEY Administration Hydrochlorothiazide 12.5 mg 06/04/17 10:00 06/04/17 10:00 Hctz - PO 12.5 mg DAILY ASHLEY Administration Sodium Chloride 1,000 mls @ 100 mls/hr 06/03/17 17:15 06/04/17 18:04 Normal Saline - IV 100 mls/hr ASDIR ASHLEY Administration Metronidazole 100 mls @ 100 mls/hr 06/04/17 02:00 06/04/17 18:04 Flagyl 500mg Premixed Ivpb - IVPB 100 mls/hr Q8H-IV ASHLEY Administration Ceftriaxone Sodium 2 gm/ 100 mls @ 200 mls/hr 06/04/17 10:00 06/04/17 10:00 Dextrose IVPB 200 mls/hr DAILY ASHLEY Administration Metoprolol Succinate 50 mg 06/04/17 10:00 06/04/17 10:01 Toprol Xl - PO 50 mg DAILY ASHLEY Administration Morphine Sulfate 2 mg 06/03/17 17:02 06/04/17 15:07 Morphine Injection - IVPUSH 2 mg Q4H PRN Administration PAIN Ondansetron HCl 4 mg 06/03/17 17:02 Zofran Injection IVPB Q6H PRN NAUSEA Rosuvastatin Calcium 5 mg 06/03/17 22:00 06/03/17 21:05 Crestor - PO 5 mg [id number] ASHLEY Administration Home Medications Medication Instructions Recorded Allopurinol 300 mg PO DAILY 01/25/16 Hydrochlorothiazide [Hctz -] 12.5 mg PO DAILY 01/25/16 Rosuvastatin Calcium [Crestor] 5 mg PO MOWEFR 01/25/16 Cholecalciferol (Vitamin D3) 2,000 unit PO DAILY 06/03/17 [Vitamin D3] Metoprolol Succinate [Toprol Xl -] 50 mg PO DAILY 06/03/17 ASSESSMENT/PLAN: 81 yo F with significant PMHx of Diverticulitis, HTN, HLD, kidney stones, Celiac Disease and Gout admitted for failed outpatient treatment of acute diverticulitis. # Acute Diverticulitis failed outpatient treatment on IV antibiotic Flagyl/ Rocephin continue ; GI consult DR. Ray Lubin. Discussed with GI. # HTN (hypertension) continue home meds # HLD (hyperlipidemia) continue home meds # Gout continue Allopurinol # Celiac disease; gluten free, wheat free diet DVT prophylaxis: Heparin, SCDs Visit type - Emergency Visit Emergency Visit: Yes ED Registration Date: 06/03/17 Care time: The patient presented to the Emergency Department on the above date and was hospitalized for further evaluation of their emergent condition. - New Patient This patient is new to me today: No - Critical Care Critical Care patient: No - Discharge Referral Referred to [facility] Med P.C[facility] No
[2017-06-05] MEDS: METRONIDAZOLE 500 MG PREMIXED 100 ML IVPB SCH ×3 (01:12→17:39)
[2017-06-05] MEDS: SODIUM CHLORIDE 1,000 ML IV SCH ×3 (06:49→22:08)
[2017-06-05 08:12] LABS: BASOPHIL 0.5 % (0-2.0); EOSINOPHIL 1.2 % (0-4.5); MCH 30.5 pg (25.7-33.7); MEAN CELL VOLUME 89.8 fl (80-96); MEAN PLT VOLUME 9.1 fl (7.5-11.1); NEUTROPHILS 53.8 % (42.8-82.8); PLATELET COUNT 144 K/MM3 (134-434); RDW 13.3 % (11.6-15.6); WHITE BLOOD COUNT 3.6 K/mm3 (4.0-10.0)
[2017-06-05 08:46] LABS: ANION GAP 11 (8-16); C-REACTIVE PROTEIN 5.5 MG/DL (0.00-0.3); CALCIUM 7.6 mg/dL (8.5-10.1); CO2 24 mmol/L (21-32); GLUCOSE,RANDOM 109 mg/dL (74-106)
[2017-06-05] MEDS ORDERED: PT OWN MED DRAWER 7, Y5N ONE (09:02)
[2017-06-05] MEDS ORDERED: DEXTROSE 5%-WATER 100 ML IVPB ONE (09:03)
[2017-06-05] MEDS: HEPARIN NA (PORCINE) 5,000 UNITS/ML 1ML VIAL SQ SCH ×2 (09:07→22:08)
[2017-06-05] MEDS: CHOLECALCIFEROL (VITAMIN D3) 1,000 UNIT TABLET (FP) PO SCH (09:07)
[2017-06-05] MEDS: CEFTRIAXONE 2 GM in DEXTROSE 5%-WATER 100 ML IVPB SCH (09:08)
[2017-06-05] MEDS: HYDROCHLOROTHIAZIDE 12.5 MG CAPSULE (FP) PO SCH (09:08)
[2017-06-05] MEDS: METOPROLOL SUCCINATE 50 MG TAB.SR.24H (FP) PO SCH (09:08)
[2017-06-05] MEDS: ALLOPURINOL 300 MG TABLET (FP) PO SCH (09:09)
--- NOTE | 2017-06-05 10:25 | PN ---
GI Progress Note Subjective: GI NOte: Pain has almost completely resolved. Tolerated scrambled eggs this AM - Objective Vital Signs: Vital Signs Temperature 98.1 F 06/05/17 07:25 Pulse Rate 72 06/05/17 08:51 Respiratory Rate 18 06/05/17 08:51 Blood Pressure 143/68 06/05/17 08:51 O2 Sat by Pulse Oximetry (%) 98 06/04/17 21:00 Constitutional: Calm ...Auscultate: Yes: Normoactive Bowel Sounds ...Palpate: Yes: Soft, Other (nontender today) Labs: CBC, BMP 06/05/17 07:00 06/05/17 07:00 INR, PTT INR 1.32 (0.82-1.09) H D 06/03/17 12:00 Laboratory Tests 06/04/17 06/05/17 06/05/17 07:00 07:00 07:00 WBC 3.6 L Total Bilirubin 0.6 D AST 12 L D ALT 16 D Alkaline Phosphatase 63 D C-Reactive Protein 5.5 H Albumin 2.6 L D Assessment/Plan I agree with the diet advance. Continue course of IV antibiotics for this refractory sigmoid diverticulitis and observe for how she responds to solid diet. If tolerated can consider discharge tomorrow. Discussed with Dr Cazares. Problem List - Problems (1) Colon polyp Code(s): K63.5 - POLYP OF COLON (2) Nephrolithiasis, uric acid Code(s): N20.0 - CALCULUS OF KIDNEY
--- NOTE | 2017-06-05 12:21 | PN ---
Progress Note (short form) - Note Progress Note: Patient is feeling better than yesterday but still having abdominal pain, will advance her diet today. Vital Signs Temperature 98.1 F 06/05/17 07:25 Pulse Rate 72 06/05/17 08:51 Respiratory Rate 18 06/05/17 08:51 Blood Pressure 143/68 06/05/17 08:51 O2 Sat by Pulse Oximetry (%) 98 06/04/17 21:00 GENERAL: Awake, alert, and fully oriented, in no acute distress. HEAD: Normal with no signs of trauma. EYES: PERRLA, EOMI, sclera anicteric, conjunctiva clear. EARS, NOSE, THROAT: DRY mucous membranes. NECK: supple without JVD LUNGS: CTAB. No wheezes, and no crackles. No accessory muscle use. HEART: Regular rate and rhythm, normal S1 and S2 without murmur, rub or gallop. ABDOMEN: Soft, LLQ mild tenderness, not distended, normoactive bowel sounds,(+) voluntary guarding, no rebound, no masses. MUSCULOSKELETAL: Normal range of motion at all joints. No bony deformities or tenderness. No CVA tenderness. EXTREMITIES: 2+ pulses, warm, well-perfused. No cyanosis. No clubbing. No peripheral edema. NEUROLOGICAL: Cranial nerves II-XII intact. Normal speech. gait not observed. PSYCHIATRIC: Cooperative. Good eye contact. Appropriate mood and affect. SKIN: Warm, dry, normal turgor, no rashes or lesions noted, normal capillary refill. CBCD WBC 3.6 K/mm3 (4.0-10.0) L 06/05/17 07:00 RBC 4.41 M/mm3 (3.60-5.2) 06/05/17 07:00 Hgb 13.4 GM/dL (10.7-15.3) 06/05/17 07:00 Hct 39.6 % (32.4-45.2) 06/05/17 07:00 MCV 89.8 fl (80-96) 06/05/17 07:00 MCHC 34.0 g/dl (32.0-36.0) 06/05/17 07:00 RDW 13.3 % (11.6-15.6) 06/05/17 07:00 Plt Count 144 K/MM3 (134-434) 06/05/17 07:00 MPV 9.1 fl (7.5-11.1) 06/05/17 07:00 CMP Sodium 137 mmol/L (136-145) 06/05/17 07:00 Potassium 3.4 mmol/L (3.5-5.1) L 06/05/17 07:00 Chloride 102 mmol/L (98-107) 06/05/17 07:00 Carbon Dioxide 24 mmol/L (21-32) 06/05/17 07:00 Anion Gap 11 (8-16) 06/05/17 07:00 BUN 13 mg/dL (7-18) D 06/05/17 07:00 Creatinine 1.0 mg/dL (0.55-1.02) D 06/05/17 07:00 Creat Clearance w eGFR 39.21 (>60) 06/04/17 07:00 Random Glucose 109 mg/dL (74-106) H 06/05/17 07:00 Calcium 7.6 mg/dL (8.5-10.1) L 06/05/17 07:00 Total Bilirubin 0.6 mg/dL (0.2-1.0) D 06/04/17 07:00 AST 12 U/L (15-37) L D 06/04/17 07:00 ALT 16 U/L (12-78) D 06/04/17 07:00 Alkaline Phosphatase 63 U/L (45-117) D 06/04/17 07:00 Total Protein 4.6 g/dl (6.4-8.2) L D 06/04/17 07:00 Albumin 2.6 g/dl (3.4-5.0) L D 06/04/17 07:00 Current Medications Generic Name Dose Route Start Last Admin Trade Name Freq PRN Reason Stop Dose Admin Allopurinol 300 mg 06/04/17 10:00 06/05/17 09:09 Zyloprim - PO 300 mg DAILY ASHLEY Administration Cholecalciferol 2,000 unit 06/04/17 10:00 06/05/17 09:07 Vitamin D3 - PO 2,000 unit DAILY ASHLEY Administration Heparin Sodium (Porcine) 5,000 unit 06/03/17 22:00 06/05/17 09:07 Heparin - SQ 5,000 unit BID ASHLEY Administration Hydrochlorothiazide 12.5 mg 06/04/17 10:00 06/05/17 09:08 Hctz - PO 12.5 mg DAILY ASHLEY Administration Sodium Chloride 1,000 mls @ 100 mls/hr 06/03/17 17:15 06/05/17 06:49 Normal Saline - IV 100 mls/hr ASDIR ASHLEY Administration Metronidazole 100 mls @ 100 mls/hr 06/04/17 02:00 06/05/17 09:06 Flagyl 500mg Premixed Ivpb - IVPB 100 mls/hr Q8H-IV ASHLEY Administration Ceftriaxone Sodium 2 gm/ 100 mls @ 200 mls/hr 06/04/17 10:00 06/05/17 09:08 Dextrose IVPB 200 mls/hr DAILY ASHLEY Administration Metoprolol Succinate 50 mg 06/04/17 10:00 06/05/17 09:08 Toprol Xl - PO 50 mg DAILY ASHLEY Administration Morphine Sulfate 2 mg 06/03/17 17:02 06/04/17 21:54 Morphine Injection - IVPUSH 2 mg Q4H PRN Administration PAIN Ondansetron HCl 4 mg 06/03/17 17:02 Zofran Injection IVPB Q6H PRN NAUSEA Rosuvastatin Calcium 5 mg 06/03/17 22:00 06/03/17 21:05 Crestor - PO 5 mg [id number]@2200 ASHLEY Administration Home Medications Medication Instructions Recorded Allopurinol 300 mg PO DAILY 01/25/16 Hydrochlorothiazide [Hctz -] 12.5 mg PO DAILY 01/25/16 Rosuvastatin Calcium [Crestor] 5 mg PO MOWEFR 01/25/16 Cholecalciferol (Vitamin D3) 2,000 unit PO DAILY 06/03/17 [Vitamin D3] Metoprolol Succinate [Toprol Xl -] 50 mg PO DAILY 06/03/17 ASSESSMENT/PLAN: 81 yo F with significant PMHx of Diverticulitis, HTN, HLD, kidney stones, Celiac Disease and Gout admitted for failed outpatient treatment of acute diverticulitis. # Acute Diverticulitis failed outpatient treatment on IV antibiotic Flagyl/ Rocephin continue ; GI consult . Discussed with GI. advance her diet to gluten free diet. # Acute mild Hypokalemia continue with KDur 20meq bid x 4 doses. # HTN (hypertension) continue home meds # HLD (hyperlipidemia) continue home meds # Gout continue Allopurinol # Celiac disease; gluten free, wheat free diet DVT prophylaxis: Heparin, SCDs Possible dc in am if stable Visit type - Emergency Visit Emergency Visit: Yes ED Registration Date: 06/03/17 Care time: The patient presented to the Emergency Department on the above date and was hospitalized for further evaluation of their emergent condition. - New Patient This patient is new to me today: No - Critical Care Critical Care patient: No - Discharge Referral Referred to [facility] No
[2017-06-05] MEDS ORDERED: LOPERAMIDE HCL 2 MG CAPSULE PO ONE (23:49)
[2017-06-06] MEDS: METRONIDAZOLE 500 MG PREMIXED 100 ML IVPB SCH ×2 (01:48→11:00)
[2017-06-06 07:32] LABS: BASOPHIL 0.7 % (0-2.0); EOSINOPHIL 1.1 % (0-4.5); MCH 30.1 pg (25.7-33.7); MCHC 33.8 g/dl (32.0-36.0); MEAN CELL VOLUME 88.9 fl (80-96); MEAN PLT VOLUME 8.9 fl (7.5-11.1); NEUTROPHILS 48.8 % (42.8-82.8); PLATELET COUNT 141 K/MM3 (134-434); RDW 13.2 % (11.6-15.6); WHITE BLOOD COUNT 3.3 K/mm3 (4.0-10.0)
[2017-06-06 08:01] LABS: ANION GAP 10 (8-16); C-REACTIVE PROTEIN 3.7 MG/DL (0.00-0.3); CALCIUM 7.7 mg/dL (8.5-10.1); CO2 25 mmol/L (21-32); CREATININE 0.9 mg/dL (0.55-1.02); GLUCOSE,RANDOM 110 mg/dL (74-106)
--- NOTE | 2017-06-06 08:47 | PN ---
Progress Note (short form) - Note Progress Note: BRIEF NOTE PATIENT TO REMAIN UNDER HOSPITALIST SERVICE. CHART REVIEWED/PATIENT EXAMINED AGREE WITH CURRENT PLAN PER GI. PATIENT WILL FOLLOW UP WITH GI/OUR SERVICE OUTPATIENT. Cristy CARSON MD
[2017-06-06] MEDS ORDERED: DEXTROSE 5%-WATER 100 ML IVPB ONE (09:58)
[2017-06-06] MEDS ORDERED: PT OWN MED DRAWER 7, Y5N ONE (09:58)
[2017-06-06] MEDS: CEFTRIAXONE 2 GM in DEXTROSE 5%-WATER 100 ML IVPB SCH (10:07)
[2017-06-06] MEDS: ALLOPURINOL 300 MG TABLET (FP) PO SCH (10:07)
[2017-06-06] MEDS: HEPARIN NA (PORCINE) 5,000 UNITS/ML 1ML VIAL SQ SCH (10:07)
[2017-06-06] MEDS: METOPROLOL SUCCINATE 50 MG TAB.SR.24H (FP) PO SCH (10:07)
[2017-06-06] MEDS: CHOLECALCIFEROL (VITAMIN D3) 1,000 UNIT TABLET (FP) PO SCH (10:07)
[2017-06-06] MEDS: HYDROCHLOROTHIAZIDE 12.5 MG CAPSULE (FP) PO SCH (10:07)
[2017-06-06] MEDS: SODIUM CHLORIDE 1,000 ML IV SCH (10:08)
[2017-06-06] MEDS ORDERED: POTASSIUM CHLORIDE TABS 20 MEQ TABLET.ER (FP) PO SCH (13:30)
--- NOTE | 2017-06-06 13:43 | DS ---
Physical Exam: SUBJECTIVE: Patient seen and examined Patient is feeling better this morning. Events noted that patient had multiple diarrhea last night, but no diarrhea this morning after given a dose of Imodium last night by the resident. Patient has no further diarrhea today, feels well, no fever or chills, no shortness of breath. OBJECTIVE: Vital Signs Temperature 97.9 F 06/06/17 10:00 Pulse Rate 70 06/06/17 10:00 Respiratory Rate 18 06/06/17 10:00 Blood Pressure 127/44 06/06/17 10:00 O2 Sat by Pulse Oximetry (%) 97 06/06/17 09:00 PHYSICAL EXAM GENERAL: The patient is awake, alert, and fully oriented, in no acute distress. HEAD: Normal with no signs of trauma. EYES: PERRL, extraocular movements intact, sclera anicteric, conjunctiva clear. ENT: Ears normal, oropharynx clear without exudates, moist mucous membranes. NECK: Trachea midline, full range of motion, supple. LUNGS: Breath sounds equal, clear to auscultation bilaterally, no wheezes, no crackles, no accessory muscle use. HEART: Regular rate and rhythm, S1, S2 without murmur, rub or gallop. ABDOMEN: Soft, nontender, nondistended, normoactive bowel sounds, no guarding, no rebound, no hepatosplenomegaly, no masses. EXTREMITIES: 2+ pulses, warm, well-perfused, no edema. NEUROLOGICAL: Cranial nerves II through XII grossly intact. Normal speech, gait not observed. PSYCH: Normal mood, normal affect. SKIN: Warm, dry, normal turgor, no rashes or lesions noted. LABS CBCD WBC 3.3 K/mm3 (4.0-10.0) L 06/06/17 06:00 RBC 4.49 M/mm3 (3.60-5.2) 06/06/17 06:00 Hgb 13.5 GM/dL (10.7-15.3) 06/06/17 06:00 Hct 39.9 % (32.4-45.2) 06/06/17 06:00 MCV 88.9 fl (80-96) 06/06/17 06:00 MCHC 33.8 g/dl (32.0-36.0) 06/06/17 06:00 RDW 13.2 % (11.6-15.6) 06/06/17 06:00 Plt Count 141 K/MM3 (134-434) 06/06/17 06:00 MPV 8.9 fl (7.5-11.1) 06/06/17 06:00 CMP Sodium 139 mmol/L (136-145) 06/06/17 06:00 Potassium 3.1 mmol/L (3.5-5.1) L 06/06/17 06:00 Chloride 104 mmol/L (98-107) 06/06/17 06:00 Carbon Dioxide 25 mmol/L (21-32) 06/06/17 06:00 Anion Gap 10 (8-16) 06/06/17 06:00 BUN 12 mg/dL (7-18) 06/06/17 06:00 Creatinine 0.9 mg/dL (0.55-1.02) 06/06/17 06:00 Creat Clearance w eGFR 39.21 (>60) 06/04/17 07:00 Random Glucose 110 mg/dL (74-106) H 06/06/17 06:00 Calcium 7.7 mg/dL (8.5-10.1) L 06/06/17 06:00 Total Bilirubin 0.6 mg/dL (0.2-1.0) D 06/04/17 07:00 AST 12 U/L (15-37) L D 06/04/17 07:00 ALT 16 U/L (12-78) D 06/04/17 07:00 Alkaline Phosphatase 63 U/L (45-117) D 06/04/17 07:00 Total Protein 4.6 g/dl (6.4-8.2) L D 06/04/17 07:00 Albumin 2.6 g/dl (3.4-5.0) L D 06/04/17 07:00 Current Medications Generic Name Dose Route Start Last Admin Trade Name Keyshawnq PRN Reason Stop Dose Admin Allopurinol 300 mg 06/04/17 10:00 06/06/17 10:07 Zyloprim - PO 300 mg DAILY ASHLEY Administration Cholecalciferol 2,000 unit 06/04/17 10:00 06/06/17 10:07 Vitamin D3 - PO 2,000 unit DAILY ASHLEY Administration Heparin Sodium (Porcine) 5,000 unit 06/03/17 22:00 06/06/17 10:07 Heparin - SQ 5,000 unit BID ASHLEY Administration Hydrochlorothiazide 12.5 mg 06/04/17 10:00 06/06/17 10:07 Hctz - PO 12.5 mg DAILY ASHLEY Administration Sodium Chloride 1,000 mls @ 100 mls/hr 06/03/17 17:15 06/06/17 10:08 Normal Saline - IV 100 mls/hr ASDIR ASHLEY Administration Metronidazole 100 mls @ 100 mls/hr 06/04/17 02:00 06/06/17 11:00 Flagyl 500mg Premixed Ivpb - IVPB 100 mls/hr Q8H-IV ASHLEY Administration Ceftriaxone Sodium 2 gm/ 100 mls @ 200 mls/hr 06/04/17 10:00 06/06/17 10:07 Dextrose IVPB 200 mls/hr DAILY ASHLEY Administration Potassium Chloride 100 mls @ 100 mls/hr 06/06/17 13:45 Potassium Chloride 10 Meq Premix Ivpb - IVPB 06/06/17 14:44 Q60M ASHLEY Metoprolol Succinate 50 mg 06/04/17 10:00 06/06/17 10:07 Toprol Xl - PO 50 mg DAILY ASHLEY Administration Morphine Sulfate 2 mg 06/03/17 17:02 06/04/17 21:54 Morphine Injection - IVPUSH 2 mg Q4H PRN Administration PAIN Ondansetron HCl 4 mg 06/03/17 17:02 Zofran Injection IVPB Q6H PRN NAUSEA Potassium Chloride 20 meq 06/06/17 13:30 K-Dur - PO BID [facility] Rosuvastatin Calcium 5 mg 06/03/17 22:00 06/03/17 21:05 Crestor - PO 5 mg [id number] ASHLEY Administration Home Medications Medication Instructions Recorded Allopurinol 300 mg PO DAILY 01/25/16 Hydrochlorothiazide [Hctz -] 12.5 mg PO DAILY 01/25/16 Rosuvastatin Calcium [Crestor] 5 mg PO MOWEFR 01/25/16 Cholecalciferol (Vitamin D3) 2,000 unit PO DAILY 06/03/17 [Vitamin D3] Metoprolol Succinate [Toprol XL -] 50 mg PO DAILY 06/03/17 Acidoph/L.bulg/Bif.b/S.thermop 1 each PO BID #100 tablet 06/06/17 [Bacid Caplet] Cefuroxime Axetil [Ceftin -] 500 mg PO Q12H #14 tablet 06/06/17 Metronidazole [Flagyl -] 500 mg PO Q8H #21 tablet 06/06/17 Potassium Chloride [K-Dur -] 20 meq PO BID #5 tab 06/06/17 HOSPITAL COURSE: Date of Admission:06/03/17 Date of Discharge: 06/06/17 81 yo F with significant PMHx of Diverticulitis, HTN, HLD, kidney stones, Celiac Disease and Gout admitted for failed outpatient treatment of acute diverticulitis. # Acute Diverticulitis failed outpatient treatment on IV antibiotic Flagyl/ Rocephin will convert it to oral antibiotic for 7 more days , will give her Bacid as well. GI consult appreciated , Discussed with GI. continue gluten free diet. Follow with . Also since she was having diarrhea last night, no diarrhea at this time, will collect stool sample befor she lives the hospital. # Acute mild Hypokalemia continue with KDur 20meq bid x 4 doses. and One IV potassium rider. # HTN (hypertension) continue home meds # HLD (hyperlipidemia) continue home meds # Gout continue Allopurinol # Celiac disease; gluten free, wheat free diet discharge patient home after potassium rider and stool for cdiff test. will add Bacid to her regimen. Minutes to complete discharge: 45 Discharge Summary Reason For Visit: ACUTE DIVERTICULITIS OF INTESTINE Current Active Problems Acute diverticulitis (Acute) Celiac disease (Acute) Colon polyp (Acute) DVT prophylaxis (Acute) Failure of outpatient treatment (Acute) Gout (Acute) HLD (hyperlipidemia) (Acute) HTN (hypertension) (Acute) Nephrolithiasis, uric acid (Acute) Condition: Stable - Instructions Diet, Activity, Other Instructions: low fat , low fiber diet. Referrals: Yasmany Bell MD [Staff Physician] - 1 Week Javier Edwards MD [Primary Care Provider] - 1 Week Disposition: HOME - Home Medications Comprehensive Discharge Medication List: Ambulatory Orders Allopurinol 300 mg PO DAILY 01/25/16 Hydrochlorothiazide [Hctz -] 12.5 mg PO DAILY 01/25/16 Rosuvastatin Calcium [Crestor] 5 mg PO MOWEFR 01/25/16 Cholecalciferol (Vitamin D3) [Vitamin D3] 2,000 unit PO DAILY 06/03/17 Metoprolol Succinate [Toprol XL -] 50 mg PO DAILY 06/03/17 Acidoph/L.bulg/Bif.b/S.thermop [Bacid Caplet] 1 each PO BID #100 tablet Cefuroxime Axetil [Ceftin -] 500 mg PO Q12H #14 tablet 06/06/17 Metronidazole [Flagyl -] 500 mg PO Q8H #21 tablet 06/06/17 Potassium Chloride [K-Dur -] 20 meq PO BID #5 tab 06/06/17 This patient is new to me today: No Emergency Visit: Yes ED Registration Date: 06/03/17 Care time: The patient presented to the Emergency Department on the above date and was hospitalized for further evaluation of their emergent condition. Critical Care patient: No - Discharge Referral Referred to [facility] Med P.C.: No
[2017-06-06] MEDS ORDERED: KCL 10 MEQ IVPB 100 ML IVPB SCH (13:45)
--- NOTE | 2017-06-06 13:53 | PN ---
GI Progress Note Subjective: GI NOte: No abdominal pain. Eating solids albeit minimally. Having loose BMs. - Objective Vital Signs: Vital Signs Temperature 97.9 F 06/06/17 10:00 Pulse Rate 70 06/06/17 10:00 Respiratory Rate 18 06/06/17 10:00 Blood Pressure 127/44 06/06/17 10:00 O2 Sat by Pulse Oximetry (%) 97 06/06/17 09:00 Laboratory Tests 06/05/17 06/06/17 06/06/17 07:00 06:00 06:00 WBC 3.3 L Potassium 3.1 L C-Reactive Protein 5.5 H 3.7 H D Constitutional: Calm ...Auscultate: Yes: Normoactive Bowel Sounds ...Palpate: Yes: Soft, Other (nontender) Labs: CBC, BMP 06/06/17 06:00 06/06/17 06:00 INR, PTT INR 1.32 (0.82-1.09) H D 06/03/17 12:00 Assessment/Plan Resolving sigmoid diverticulitis and tolerating solid diet. Will need to screen for C diff. Agree with probiotic. No objections to discharge after replacing potassium. Discussed with Dr Plascencia. Problem List - Problems (1) Colon polyp Code(s): K63.5 - POLYP OF COLON (2) Nephrolithiasis, uric acid Code(s): N20.0 - CALCULUS OF KIDNEY
[2017-06-06 15:11] VITALS: BP 140/76; PULSE 66; TEMP 98
== END 2017-06-06 16:36 | disposition home or self-care (01) | DRG 392 ==
LOC: JER 11:05 → JERBED 16:19 → J8W 18:10
PROVIDERS: ADMIT Internal Medicine; ATTEND Internal Medicine
DX: K57.32 Diverticulitis of large intestine without perforation or abscess without bleeding (principal); I10 Essential (primary) hypertension; E78.5 Hyperlipidemia, unspecified; K90.0 Celiac disease; M10.9 Gout, unspecified; N20.0 Calculus of kidney; K76.0 Fatty (change of) liver, not elsewhere classified; N32.81 Overactive bladder; K63.5 Polyp of colon; E87.6 Hypokalemia; K44.9 Diaphragmatic hernia without obstruction or gangrene; N28.1 Cyst of kidney, acquired; Z90.722 Acquired absence of ovaries, bilateral
CPT/HCPCS: 36415; 71010-TC; 74176-TC; 80048; 80053; 81003; 82378; 83735; 84100; 85025; 85610; 86140; 93005; 93010; 99283-25; J1644; Q9967